=== PATIENT | female | born 1945 | race Caucasian/White ===

== ENCOUNTER 2016-12-29 06:23 | Day surgery (SDC) | payer MEDICARE, BC ==
[~2016-12-29 06:23] MED LIST: Midazolam 1 MG/ML 2 ML SDV ONE; fentaNYL 100 MCG/2 ML SDV ONE
[2016-12-29] MEDS ORDERED: Sodium Chloride 0.9% 10 ML Syringe FLUSH PRN (06:28)
[2016-12-29] MEDS ORDERED: Dextrose 5%-0.45% NaCl 1,000 ML IV SCH (06:30)
[2016-12-29] MEDS ORDERED: fentaNYL 100 MCG/2 ML SDV IV ONE ×3 (07:29→13:23)
[2016-12-29] MEDS ORDERED: Midazolam 1 MG/ML 2 ML SDV IV ONE ×4 (07:30→13:23)
[2016-12-29 09:59] VITALS: BP 146/88
--- NOTE | 2016-12-29 11:41 | OR ---
DATE: 12/29/2016 PROCEDURE: Total colonoscopy. INSTRUMENT USED: CF-H180 AL Olympus video colonoscope. PREMEDICATIONS: Fentanyl 100 mcg intravenous, Versed 2.5 mg intravenous, O2 cannula and later mask. INDICATION: Screening colonoscopic examination is done for detection of any polypoid lesions and removal, endoscopic hemostasis therapy if needed. DESCRIPTION OF PROCEDURE: Initial rectal exam showed some diffuse perianal erythema, external hemorrhoidal tags noted. Rigid anoscopy was unremarkable. The colonoscope was passed with ease. Numerous scattered diverticula were noted in the distal left colon along with deformity. The scope was passed with ease up to the cecal area, photographs were taken of the cecum with large amount of solid stools adherent to the bowel wall. No bleeding was noted from any of the visualized areas at the commencement of the examination. No stricture. No vascular ectasia. No large isolated ulcerations seen. No evidence of diffuse inflammatory bowel disease in the form of friability, contact bleeding, or ulcerations. No polyp or tumor mass identified. The examination was extremely compromised due to the presence of large amount of adherent solid stools in various areas that could not be aspirated clear. Probing the proximal sides of folds and flexures, using adequate distention and clearing up the stool material, withdrawal of the scope was made, cecum to rectum time over 6 minutes. No bleeding was noted from any of the visualized areas at the completion of examination. IMPRESSION: Diverticulosis. The patient tolerated the procedure well. [facility] /[id number]
== END 2016-12-29 09:59 | disposition home or self-care (01) ==
LOC: DL.ENDO 06:23
PROVIDERS: ATTEND Internal Medicine Gastroenterology
DX: Z12.11 Encounter for screening for malignant neoplasm of colon (principal); K64.4 Residual hemorrhoidal skin tags; L53.8 Other specified erythematous conditions; Z85.3 Personal history of malignant neoplasm of breast; F41.1 Generalized anxiety disorder; F33.9 Major depressive disorder, recurrent, unspecified; I10 Essential (primary) hypertension; M81.0 Age-related osteoporosis without current pathological fracture; L40.9 Psoriasis, unspecified
CPT/HCPCS: G0121; J2250; J3010; J7042

== ENCOUNTER 2017-01-12 05:47 | Day surgery (SDC) | payer MEDICARE, BC ==
[2017-01-12] MEDS ORDERED: Midazolam 1 MG/ML 2 ML SDV ONE (06:13)
[2017-01-12] MEDS ORDERED: fentaNYL 100 MCG/2 ML SDV ONE (06:13)
[2017-01-12] MEDS ORDERED: fentaNYL 100 MCG/2 ML SDV IV ONE ×3 (06:57→10:30)
[2017-01-12] MEDS ORDERED: Midazolam 1 MG/ML 2 ML SDV IV ONE ×4 (06:58→10:30)
[2017-01-12] MEDS ORDERED: Dextrose 5%-0.45% NaCl 1,000 ML IV SCH (07:00)
[2017-01-12] MEDS ORDERED: Sodium Chloride 0.9% 10 ML Syringe FLUSH PRN (07:00)
[2017-01-12 09:00] VITALS: BP 134/71
--- NOTE | 2017-01-12 10:36 | OR ---
DATE: 01/12/2017 PROCEDURE: Total colonoscopy. INSTRUMENT USED: CF-H180AL Olympus video colonoscope. PREMEDICATIONS: Fentanyl 100 mcg intravenous, Versed 2.5 mg intravenous. Nasal O2 cannula. The procedure was done under pulse oximetry, BP recording, and it engineer. INDICATION: Screening colonoscopic examination is done for detection of any polypoid lesions and removal, endoscopic hemostasis therapy if needed. Had previous inadequate study due to the presence of large amount of solid fecal material, and restudy is done with two day bowel perforation. Initial rectal exam showed some perianal erythema of the skin. Rigid anoscopy was normal. PROCEDURE IN DETAIL: The colonoscope was passed with relative ease up to the ileocecal area, photographs taken of the normal-appearing cecum, identified by double-bulged ileocecal folds. No bleeding was noted from any of the visualized areas at the commencement of the examination. No stricture. No vascular ectasia. No large isolated ulcerations seen. No evidence of diffuse inflammatory bowel disease in the form of friability, contact bleeding, or ulcerations. No polyp or tumor mass identified. The examination was a bit prolonged due to the tortuosity and redundancy of the colon. There was some fecal material noted. Probing the proximal sides of folds and flexures, using adequate distention and clearing up the stool material, withdrawal of the scope was made, cecum to rectum time over 6 minutes. No bleeding was noted from any of the visualized areas at the completion of examination. IMPRESSION: Normal study. The patient tolerated the procedure well. [facility] /[id number]
== END 2017-01-16 09:35 | disposition home or self-care (01) ==
LOC: DL.ENDO 05:47
PROVIDERS: ATTEND Internal Medicine Gastroenterology
DX: Z12.11 Encounter for screening for malignant neoplasm of colon (principal); I10 Essential (primary) hypertension; F32.9 Major depressive disorder, single episode, unspecified; F41.9 Anxiety disorder, unspecified; Z98.890 Other specified postprocedural states; Z90.49 Acquired absence of other specified parts of digestive tract
CPT/HCPCS: G0121; J2250; J3010; J7042

== ENCOUNTER 2017-05-31 20:31 | Emergency (ER) | payer MEDICARE, BC ==
[2017-05-31 20:56] VITALS: BP 161/76
[2017-05-31 21:54] LABS: CHLORIDE,CL 102 mmol/L (101-111); SODIUM,NA 141 mmol/L (135-145)
--- NOTE | 2017-06-02 12:58 | EKG ---
05/31/2017 - JUDIE COLLADO - A 12-lead EKG shows normal sinus rhythm with heart rate of 70. No significant ST elevation or ST depression noted on this 12-lead EKG. [facility] /[id number]
--- NOTE | 2017-06-03 02:31 | EDM.PDOC ---
ED HPI GENERAL MEDICAL PROBLEM - General Chief Complaint: Lower Extremity Injury/Pain Stated Complaint: FELL AND HAS HIP PAIN Time Seen by Provider: 05/31/17 20:48 Source of Information: Reports: Patient History Limitations: Reports: No Limitations - History of Present Illness INITIAL COMMENTS - FREE TEXT/NARRATIVE: ED via wheelchair. Notes tripping and falling on sidewalk with pain to left hip. Assisted to private vehicle by officer driving by. Prior hx psoriatic arthritis. Onset: Today Severity: Moderate Left Hip Pain Score (Numeric/FACES): 1 - Related Data Allergies Allergy/AdvReac Type Severity Reaction Status Date / Time No Known Allergies Allergy Verified 05/31/17 20:50 Home Meds: Home Meds Amitriptyline [Elavil] 75 mg PO BEDTIME 10/28/14 [History] Calcium Carbonate/Vitamin D3 [Calcium 600 + Vit D 400] 1 tab PO BID 10/28/14 [ History] Clobetasol [Clobetasol Propionate 0.05%] 1 applic TOP DAILY 10/28/14 [History] Enalapril [Vasotec] 5 mg PO BID 10/28/14 [History] Methotrexate Sodium [Methotrexate] 12.5 mg PO .WEEKLY 10/28/14 [History] Multivitamin [Multi-Vitamin Daily] 1 each PO DAILY 10/28/14 [History] valACYclovir [Valtrex] 500 mg PO TID PRN 10/28/14 [History] Anastrozole [Arimidex] 1 mg PO DAILY 12/25/16 [History] Calcipotriene [Calcipotriene] 1 applic TOP ASDIRECTED 12/25/16 [History] Folic Acid 1,200 mg PO DAILY 12/26/16 [History] Alendronate [Fosamax] 1 tab PO WEEKLY 01/09/17 [History] Past Medical History HEENT History: Reports: None Cardiovascular History: Reports: Hypertension Respiratory History: Reports: None Gastrointestinal History: Reports: None Genitourinary History: Reports: None 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 RECURRENT COLD SORES Oncologic (Cancer) History: Reports: Breast, Other (See Below) Other Oncologic History: HX OF BREAST CA - INVASIVE DUCTAL - LEFT Dermatologic History: Reports: Psoriasis - Infectious Disease History Infectious Disease History: Reports: Chicken Pox, Measles, Mumps - Past Surgical History HEENT Surgical History: Reports: Tonsillectomy Cardiovascular Surgical History: Reports: None GI Surgical History: Reports: Appendectomy, Colonoscopy, Other (See Below) Female Surgical History: Reports: Breast Biopsy Oncologic Surgical History: Reports: Biopsy of Breast, Lumpectomy, Other (See Below) Dermatological Surgical History: Reports: Other (See Below) Social & Family History - Family History Cardiac: Reports: CAD, Hypertension Endocrine/Metabolic: Reports: Diabetes, type II Oncologic: Reports: Breast - Tobacco Use Smoking Status *Q: Unknown Ever Smoked Years of Tobacco use: 4 Used Tobacco, but Quit: Yes Month Tobacco Last Used: October Second Hand Smoke Exposure: No - Caffeine Use Caffeine Use: Reports: Coffee Caffeine Use Comment: 8 cups a day - Alcohol Use Days Per Week of Alcohol Use: 0 - Recreational Drug Use Recreational Drug Use: No Review of Systems - Review of Systems Review Of Systems: See Below Constitutional: Reports: No Symptoms Eyes: Reports: No Symptoms Ears: Reports: No Symptoms Nose: Reports: No Symptoms Mouth/Throat: Reports: No Symptoms Respiratory: Reports: No Symptoms Cardiovascular: Reports: No Symptoms GI/Abdominal: Reports: No Symptoms Musculoskeletal: Reports: Joint Pain (left hip) Skin: Reports: Wound (abrasion left knee) Neurological: Reports: No Symptoms Psychiatric: Reports: No Symptoms ED EXAM, GENERAL - Physical Exam Exam: See Below Exam Limited By: Intoxication General Appearance: Alert, Moderate Distress Eye Exam: Bilateral Eye: EOMI Ears: Normal External Exam Nose: Normal Inspection Throat/Mouth: Normal Inspection Head: Atraumatic, Normocephalic Neck: Normal Inspection, Full Range of Motion Respiratory/Chest: No Respiratory Distress, Lungs Clear, Normal Breath Sounds Cardiovascular: Normal Peripheral Pulses, Regular Rate, Rhythm GI/Abdominal: Normal Bowel Sounds, Soft Back Exam: Normal Inspection Extremities: Other (hip slight external rotation, pain with minimal movement. Pedal pulses present extremity warm) Neurological: Alert, Oriented Psychiatric: Normal Affect, Normal Mood Skin Exam: Warm, Dry, Intact, Normal Color, Wound/Incision (3x4cm superficial abrasion to left knee) Course - Vital Signs Last Recorded V/S: Last Vital Signs Temp 98.0 F 05/31/17 20:52 Pulse 83 05/31/17 20:52 Resp 20 05/31/17 20:52 BP 161/76 H 05/31/17 20:52 Pulse Ox 97 05/31/17 20:52 - Orders/Labs/Meds Labs: Laboratory Tests 05/31/17 05/31/17 Range/Units 21:25 21:25 WBC 6.3 (5.0-10.0) 10^3/uL RBC 3.78 L (4.2-5.4) 10^6/uL Hgb 12.9 (12.0-16.0) g/dL Hct 39.1 (37.0-47.0) % MCV 103.4 H (80-100) fL MCH 34.1 H (27.0-34.0) pg MCHC 33.0 (33.0-35.0) g/dL Plt Count 173 (150-450) 10^3/uL Neut % (Auto) 66.4 (42.2-75.2) % Lymph % (Auto) 19.0 L (20.5-50.1) % [place] % (Auto) 10.2 H (2-8) % Eos % (Auto) 4.2 H (1.0-3.0) % Baso % (Auto) 0.2 (0.0-1.0) % Sodium 141 (135-145) mmol/L Potassium 3.9 (3.6-5.0) mmol/L Chloride 102 (101-111) mmol/L Carbon Dioxide 28.0 (21.0-31.0) mmol/L Anion Gap 14.9 BUN 14 (7-18) mg/dL Creatinine 0.9 (0.6-1.3) mg/dL Est Cr Clr Drug Dosing 50.69 mL/min Estimated GFR (MDRD) > 60 BUN/Creatinine Ratio 15.55 Glucose 124 H (74-105) mg/dL Calcium 9.6 (8.4-10.2) mg/dl Total Bilirubin 0.5 (0.2-1.0) mg/dL AST 29 (10-42) IU/L ALT 19 (10-60) IU/L Alkaline Phosphatase 81 (42-121) IU/L Total Protein 7.0 (6.7-8.2) g/dl Albumin 4.1 (3.2-5.5) g/dl Globulin 2.9 Albumin/Globulin Ratio 1.41 - Radiology Interpretation Free Text/Narrative:: Xray Pelvis :comminuted fracture left femur with superior rotation of femoral head CT Pelvis:mild osteopenia, remote pelvic fracture, - Re-Assessments/Exams Free Text/Narrative Re-Assessment/Exam: 06/03/17 02:[address] Zheng, agree to accept patient for further eval and management of left hip fracture. Tx via [facility] Departure - Departure Time of Disposition: 22:40 Disposition: DC/Tfer to Acute Hospital 02 Clinical Impression: Fracture of neck of femur, hip - Discharge Information Forms: ED Department Discharge
== END 2017-05-31 22:46 ==
LOC: DL.ED 20:31
DX: S72.002A Fracture of unspecified part of neck of left femur, initial encounter for closed fracture (principal); I10 Essential (primary) hypertension; M19.90 Unspecified osteoarthritis, unspecified site; F32.9 Major depressive disorder, single episode, unspecified; W19.XXXA Unspecified fall, initial encounter; Z79.899 Other long term (current) drug therapy
CPT/HCPCS: 36415; 72170; 72192; 80053; 85025; 93005; 93010; 99285

== ENCOUNTER 2021-10-23 16:13 | Emergency (ER) | payer MEDICARE, BC ==
[2021-10-23] MEDS ORDERED: Sodium Chloride 0.9% 10 ML Syringe FLUSH PRN (16:55)
[2021-10-23 16:59] VITALS: BP 175/81; PULSE 106
--- NOTE | 2021-10-23 17:06 | EDM.PDOC ---
ED HPI GENERAL MEDICAL PROBLEM - General Chief Complaint: Cardiovascular Problem Stated Complaint: BLOOD PRESSURE, HIGH, LEFT ARM BOTHER HER Time Seen by Provider: 10/23/21 17:01 Source of Information: Reports: Patient History Limitations: Reports: No Limitations - History of Present Illness INITIAL COMMENTS - FREE TEXT/NARRATIVE: 75 y/o F c/o L arm and shoulder ache for 2 days. Pt states the pain began yesterday morning or the night before. Rates 4/10, constant no change with movement. She is also concerned that her home BP has been elevated for the past two days at around 190/100. Has taken Tylenol with no relief. She is concerned that it may be stress related.Suffers from depression. Is on Amitriptyline. Other hx of heart murmur and sees Dr. Brand in [facility] cardiology. No previous MS, recent trauma , sob, rojo, vision prob, abd pn, pelvic pn, extremity pain, drugs, etoh. - Related Data Allergies Allergy/AdvReac Type Severity Reaction Status Date / Time No Known Allergies Allergy Verified 10/23/21 16:49 Home Meds: Home Meds Amitriptyline [Elavil] 75 mg PO BEDTIME 10/28/14 [History] Calcium Carbonate/Vitamin D3 [Calcium 600 + Vit D 400] 1 tab PO BID 10/28/14 [History] Clobetasol [Clobetasol Propionate 0.05%] 1 applic TOP DAILY 10/28/14 [History] Enalapril [Vasotec] 5 mg PO BID 10/28/14 [History] Multivitamin [Multi-Vitamin Daily] 1 each PO DAILY 10/28/14 [History] valACYclovir [Valtrex] 500 mg PO TID PRN 10/28/14 [History] Calcipotriene 1 applic TOP ASDIRECTED 12/25/16 [History] Denosumab [Prolia] 60 mg SQ .Q6MO 10/23/21 [History] Tamoxifen Citrate 20 mg PO DAILY 10/23/21 [History] Past Medical History HEENT History: Reports: None Cardiovascular History: Reports: Hypertension Respiratory History: Reports: None Gastrointestinal History: Reports: None Genitourinary History: Reports: None 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 RECURRENT COLD SORES Oncologic (Cancer) History: Reports: Breast, Other (See Below) Other Oncologic History: HX OF BREAST CA - INVASIVE DUCTAL - LEFT Dermatologic History: Reports: Psoriasis - Infectious Disease History Infectious Disease History: Reports: Chicken Pox, Measles, Mumps - Past Surgical History HEENT Surgical History: Reports: Tonsillectomy Cardiovascular Surgical History: Reports: None GI Surgical History: Reports: Appendectomy, Colonoscopy, Other (See Below) Female Surgical History: Reports: Breast Biopsy Oncologic Surgical History: Reports: Biopsy of Breast, Lumpectomy, Other (See Below) Dermatological Surgical History: Reports: Other (See Below) Social & Family History - Family History Cardiac: Reports: CAD, Hypertension Endocrine/Metabolic: Reports: Diabetes, type II Oncologic: Reports: Breast - Caffeine Use Caffeine Use: Reports: Coffee Caffeine Use Comment: 8 cups a day ED ROS GENERAL - Review of Systems Review Of Systems: Comprehensive ROS is negative, except as noted in HPI. ED EXAM, GENERAL - Physical Exam Exam: See Below Exam Limited By: No Limitations General Appearance: Alert, No Apparent Distress Nose: Normal Inspection, Normal Mucosa, No Blood Throat/Mouth: Normal Inspection, Normal Lips, Normal Teeth, Normal Gums, Normal Oropharynx, Normal Voice, No Airway Compromise Head: Atraumatic Neck: Supple, Non-Tender Respiratory/Chest: No Respiratory Distress, Lungs Clear, Normal Breath Sounds Cardiovascular: Normal Peripheral Pulses, Regular Rate, Rhythm GI/Abdominal: Soft, Non-Tender (Female) Exam: Deferred Rectal (Female) Exam: Deferred Back Exam: Normal Inspection, Full Range of Motion, Other (tednerness to L upper suprascapula region.) Extremities: Normal Inspection, Normal Range of Motion, Non-Tender, Normal Capillary Refill, No Pedal Edema Neurological: Alert, Oriented, CN II-XII Intact, Normal Cognition, Normal Gait, Normal Reflexes, No Motor/Sensory Deficits Psychiatric: Normal Affect, Normal Mood Skin Exam: Warm, Dry, Intact, Normal Color, No Rash #1 Interpretation EKG Date: 10/23/21 Time: 16:56 Rhythm: NSR Bunch: Normal P-Wave: Present QRS: Normal ST-T: Normal QT: Normal Course - Vital Signs Last Recorded V/S: Last Vital Signs Temp 98.7 F 10/23/21 16:40 Pulse 106 H 10/23/21 16:40 Resp 18 10/23/21 16:40 BP 175/81 H 10/23/21 16:40 Pulse Ox 94 L 10/23/21 16:40 - Orders/Labs/Meds Orders: Active Orders 24 hr Category Date Time Status Peripheral IV Care [RC] . DIRECTED Care 10/23/21 16:56 Active Sodium Chloride 0.9% [Saline Flush] Med 10/23/21 16:55 Active 10 ml FLUSH ASDIRECTED PRN Peripheral IV Insertion Adult [OM.PC] Routine Oth 10/23/21 16:55 Ordered Medication Orders Sodium Chloride (Sodium Chloride 0.9% 10 Ml Syringe) 10 ml FLUSH ASDIRECTED PRN PRN Reason: Keep Vein Open Labs: Laboratory Tests 10/23/21 10/23/21 10/23/21 Range/Units 17:20 17:20 18:21 WBC 12.6 H (5.0-10.0) 10^3/uL RBC 4.12 L (4.2-5.4) 10^6/uL Hgb 13.5 (12.0-16.0) g/dL Hct 41.0 (37.0-47.0) % MCV 99.5 D (80-100) fL MCH 32.8 (27.0-34.0) pg MCHC 32.9 L (33.0-35.0) g/dL Plt Count 284 D (150-450) 10^3/uL Neut % (Auto) 89.8 H (42.2-75.2) % Lymph % (Auto) 3.5 L (20.5-50.1) % [place] % (Auto) 6.2 (2-8) % Eos % (Auto) 0.3 L (1.0-3.0) % Baso % (Auto) 0.2 (0.0-1.0) % Sodium 139 (136-145) mmol/L Potassium 3.4 L (3.5-5.1) mmol/L Chloride 101 (98-107) mmol/L Carbon Dioxide 25 (21-32) mmol/L Anion Gap 16.4 H (7-13) mEq/L BUN 18 (7-18) mg/dL Creatinine 0.91 (0.55-1.02) mg/dL Est Cr Clr Drug Dosing 47.54 mL/min Estimated GFR (MDRD) > 60 BUN/Creatinine Ratio 19.8 (No establ ref range) Glucose 136 H (70-99) mg/dL Calcium 9.5 (8.5-10.1) mg/dL Magnesium 2.2 (1.8-2.4) mg/dL Total Bilirubin 0.3 (0.2-1.0) mg/dL AST 27 (15-37) U/L ALT 21 (14-59) U/L Alkaline Phosphatase 57 (46-116) U/L Troponin I High Sens 20 (<=51) pg/mL C-Reactive Protein < 0.2 (0.0-0.9) mg/dL Total Protein 7.8 (6.4-8.2) g/dL Albumin 3.6 (3.4-5.0) g/dL Globulin 4.2 Albumin/Globulin Ratio 0.9 Urine Color Yellow (YELLOW) Urine Appearance Clear (CLEAR) Urine pH 7.0 (5.0-9.0) Ur Specific [place] >= 1.030 (1.005-1.030) Urine Protein >=300 H (NEGATIVE) Urine Glucose (UA) Negative (NEGATIVE) Urine Ketones Negative (NEGATIVE) Urine Occult Blood Large H (NEGATIVE) Urine Nitrite Negative (NEGATIVE) Urine Bilirubin Negative (NEGATIVE) Urine Urobilinogen 0.2 (0.2-1.0) mg/dL Ur Leukocyte Esterase Negative (NEGATIVE) Urine RBC Semi-packed H (0-5) /HPF Urine WBC 5-10 H (0-5/HPF) /HPF Ur Epithelial Cells Few (NOT SEEN) /HPF Amorphous Sediment Few (NOT SEEN) /HPF Urine Bacteria Few (0-FEW/HPF) /HPF Urine Mucus Many H (NOT SEEN) /LPF Meds: Medications Generic Name Dose Route Start Last Admin Trade Name Freq PRN Reason Stop Dose Admin Sodium Chloride 10 ml 10/23/21 16:55 Sodium Chloride 0.9% 10 Ml Syringe FLUSH ASDIRECTED PRN Keep Vein Open Discontinued Medications Generic Name Dose Route Start Last Admin Trade Name Thea PRN Reason Stop Dose Admin Ketorolac Tromethamine 30 mg 10/23/21 18:59 Ketorolac 30 Mg/Ml Sdv IVPUSH 10/23/21 19:00 ONETIME ONE - Re-Assessments/Exams Free Text/Narrative Re-Assessment/Exam: 10/23/21 19:00 I discussed the pts lab, exam, cxr, and ekg with her. I informed her of her non specific elevation in her WBC and instructed her to follow up in clinic in a few days for a recheck. Today's work up revealed no acute findings as to the cause of the pts L shoulder pain. I believe the pts pain is likely musculoskeletal. . Departure - Departure Time of Disposition: 19:02 Disposition: Home, Self-Care 01 Condition: Good Clinical Impression: Shoulder pain, left Qualifiers: Chronicity: acute Qualified Code(s): M25.512 - Pain in left shoulder Instructions: Shoulder Pain Forms: ED Department Discharge Additional Instructions: Follow up with your primary care facility this week about your elevated WBC count. Use tylenol for pain and heat on the affected area. If any new symptoms or concerns develop contact your primary care facility or return to the ER. Sepsis Event Note (ED) - Evaluation Sepsis Screening Result: No Definite Risk - Focused Exam Vital Signs: Vital Signs Temp Pulse Resp BP Pulse Ox 10/23/21 16:40 98.7 F 106 H 18 175/81 H 94 L - My Orders Last 24 Hours: My Active Orders 10/23/21 16:55 Sodium Chloride 0.9% [Saline Flush] 10 ml FLUSH ASDIRECTED PRN Peripheral IV Insertion Adult [OM.PC] Routine 10/23/21 16:56 Peripheral IV Care [RC] . DIRECTED - Assessment/Plan Last 24 Hours: My Active Orders 10/23/21 16:55 Sodium Chloride 0.9% [Saline Flush] 10 ml FLUSH ASDIRECTED PRN Peripheral IV Insertion Adult [OM.PC] Routine 10/23/21 16:56 Peripheral IV Care [RC] . DIRECTED
[2021-10-23 17:49] LABS: ANION GAP 16.4 mEq/L (7-13); CHLORIDE,CL 101 mmol/L (98-107); SODIUM,NA 139 mmol/L (136-145)
--- NOTE | 2021-10-23 17:57 | CR ---
PROCEDURE INFORMATION: Exam: XR Chest Exam date and time: 10/23/2021 5:44 PM Age: 75 years old Clinical indication: Other: L upper shoulder and left arm pain TECHNIQUE: Imaging protocol: XR of the chest. Views: 1 view. COMPARISON: No relevant prior studies available. FINDINGS: Lungs: No suspicious pulmonary nodules or areas of lung consolidation. Pleural spaces: Unremarkable. No pleural effusion. No pneumothorax. Heart/Mediastinum: Unremarkable. No cardiomegaly. Bones/joints: Age appropriate. Soft tissues: There has been left lumpectomy and axillary node dissection. IMPRESSION: No active disease of the chest.
[2021-10-23] MEDS ORDERED: Ketorolac 30 MG/ML SDV IVPUSH ONE (18:59)
== END 2021-10-23 20:05 | disposition home or self-care (01) ==
LOC: DL.ED 16:13
DX: M25.512 Pain in left shoulder (principal); I10 Essential (primary) hypertension; Z79.899 Other long term (current) drug therapy
CPT/HCPCS: 36415; 71045; 80053; 81001; 83735; 84484; 85025; 86140; 93005; 96374; 99284; J1885